=== PATIENT | male | born 1955 | race Caucasian/White ===

== ENCOUNTER → 2017-02-01 | Day surgery (SDC) | payer OTHER ==
[~2017-02-01] MED LIST: BUPIVACAINE HCL PF 0.75% 30 ML VIAL ONE; KETOROLAC TROMETHAMINE 30 MG/ML (IVP) VIAL IV PUSH ONE; LACTATED RINGER'S 1000 ML INJ 1,000 ML ONE; LIDOCAINE 1.5%/EPINEPHrine 1:200,000 PF SOLN 30 ML AMP ONE; MIDAZOLAM HCL 5 MG/ML VIAL (1 ML) ONE; ONDANSETRON HCL 4 MG/2 ML VIAL IV PUSH ONE; PROPOFOL 200 MG/20 ML AMP IV ONE; ceFAZolin 2 GM PREMIX 50 ML ONE
--- NOTE | 2017-02-02 16:15 | MP ---
cc: JANAE PEREIRA DATE OF SURGERY: 02/01/2017. PREOPERATIVE DIAGNOSIS: Left Achilles tendon rupture. POSTOPERATIVE DIAGNOSIS: Left Achilles tendon rupture. OPERATIVE PROCEDURE PERFORMED: Left Achilles tendon repair. SURGEON: Janae Pereira DPM. DIESEL AUTOMOTIVE TECHNICIAN: None. PATHOLOGY SENT: None. ANESTHESIA: General HEMOSTASIS: Pneumatic calf tourniquet at 350 mmHg. ESTIMATED BLOOD LOSS: Less than 20 ML. MATERIALS USED: An [employer] PARS with FiberWire and bone anchors as well as 3-0 Prolene. COMPLICATIONS: None. INDICATIONS FOR THE PROCEDURE: Mr. Waite is a 61-year-old male patient who sustained an Achilles tendon rupture approximately five weeks ago. The patient was originally was scheduled for surgery weeks ago with a worker comp approved surgeon. However, when this was not working out to his hopes, he decided to go to his personal insurance and have it surgically repaired. I did review the MRI with him explaining that the tear is in the middle of the tendon, however, the proximal and distal ends of the tear appeared to have some impairment as well. We discussed the possibility of a tendon lengthening as well as a tendon transfer. The patient was understanding and agreeable to any procedures needed to correct the issue. A consent was signed. The procedure was explained. No guarantees were given. DESCRIPTION OF THE PROCEDURE IN DETAIL: Under mild sedation, the patient was brought into the operating room. He was intubated on the stretcher and then a pneumatic thigh tourniquet was placed around the left thigh on the stretcher. He was then transferred into the surgical bed in a prone position. The leg was then scrubbed, prepped and draped in the usual aseptic manner and attention was directed to the posterior aspect of the left Achilles tendon where a palpable bulge was noted. A 3 cm linear longitudinal incision was created over the palpable delve and the proximal aspect of the Achilles tendon was easily seen. The distal few mm were frayed with some old hematoma as well. This was cleared and removed. An Allis was used to pull more of the tendon into view and this was healthy and stronger. Attention was then directed distally. The tendon could not be visualized at first. The incision was lengthened more distal and the tendon was then visualized. The only remaining portion of the distal aspect of the tendon that was viable was the anterior half of the medial half of the tendon. At that point, it was obvious that an end-to-end repair could not be done and that it would need additional procedures. The proximal aspect of the tendon was able to make contact with the superior aspect of the calcaneus. It required the foot to be in a plantar flexed position but did not place an excessive strain on the ankle or on the Achilles tendon. The PARS jog was used to create a locking suture pattern to the proximal stump of the Achilles tendon and then two bone anchors were inserted into the calcaneus with one medial and one lateral. The bone anchors were inserted into the calcaneus along with the FiberWire from the proximal aspect of the stump. This allowed attachment of the proximal Achilles tendon to the calcaneus. There were some palpable bone spurs noted as well that had caused the patient pain in the past and decision was made to remove these gently with a rongeur. However, not every aspect could be corrected as this was not the focus of todays surgery. The medial aspect of the Achilles tendon that did remain viable distally was then incorporated into the repaired tendon using 3-0 FiberWire. The paratenon was reapproximated using 3-0 Monocryl. Deep and subcutaneous tissues were approximated using 3-0 Monocryl. The skin was reapproximated using 3-0 Prolene. This of course was after the area was flushed with copious amounts of sterile saline. The pneumatic thigh tourniquet was released and a prompt hyperemic response to all digits of the left foot. A sterile dressing with Adaptic, 4x4s and a well-padded posterior splint were then applied. The patient tolerated the procedure and the anesthesia well and will recover in the post-anesthesia care unit for a period of time before discharged home with written and oral postoperative instructions. Janae GOODWIN/ASHLEY /11:29 AM /3:33 PM ALEKSEY
== END | disposition home or self-care (01) ==
LOC: ESDC 06:06
PROVIDERS: ATTEND Podiatrist Foot & Ankle Surgery
DX: S86.012A Strain of left Achilles tendon, initial encounter (principal)
CPT/HCPCS: 01472; 27650; 64450; C1713; J0690; J1885; J2250; J2405; J3010; J7120